=== PATIENT | female | born 1975 | race Caucasian/White ===

== ENCOUNTER 2025-05-08 09:32 | Outpatient (CLI) | payer MEDICAID ==
[2025-05-08] MEDS ORDERED: iohexol 300mg/ml 100ml inj. ONE (10:00)
--- NOTE | 2025-05-08 12:51 | RADIOLOGY REPORT ---
CLINICAL HISTORY: LEFT UPPER QUADRANT PAIN TECHNIQUE: CT of the abdomen was performed with IV contrast. This exam was performed according to our departmental dose optimization program. Up-to-date CT equipment and radiation dose reduction techniques are utilized as appropriate. CTDI 8 DLP 257 COMPARISON: None FINDINGS: Abdomen: The spleen, pancreas, adrenal glands, kidneys, and gallbladder are unremarkable. There are left hepatic lobe cysts. The abdominal aorta is normal in course and caliber. There are no significant atherosclerotic calcifications. There is no free intraperitoneal air or fluid. There is no enlarged abdominal lymph node. There is no bowel wall thickening or dilatation. ML minimal ascending colon diverticulosis. Other: The imaged lower thorax is unremarkable. No acute osseous abnormality is evident. IMPRESSION: No acute abnormality.
== END 2025-05-08 23:59 | disposition home or self-care (01) ==
LOC: RAD 09:32
PROVIDERS: ATTEND Family Medicine
DX: R10.12 Left upper quadrant pain (principal)
CPT/HCPCS: 74160; Q9967